=== PATIENT | male | born 1985 | race Caucasian/White ===

== ENCOUNTER 2021-09-05 09:32 | Emergency (ER) | payer OTHER ==
[2021-09-05] MEDS ORDERED: LIDOCAINE HCL 5% TOP OINTMENT 50 GM TUBE TP ONE (09:49)
[2021-09-05] MEDS ORDERED: LIDOCAINE 2.5%/PRILOCAINE 2.5% 30 GRAM TUBE TP ONE (09:53)
[2021-09-05] MEDS ORDERED: LIDOCAINE 2.5%/PRILOCAINE 2.5% (5 Gram/TUBE) TP ONE (09:53)
[2021-09-05 10:05] VITALS: BP 138/95; PULSE 62; TEMP 98.2; BMI 32.7
== END 2021-09-05 10:41 | disposition home or self-care (01) ==
LOC: FER 09:32
DX: K64.9 Unspecified hemorrhoids (principal)
CPT/HCPCS: 99283-25